=== PATIENT | female | born 1995 | race Two or more races ===

== ENCOUNTER 2025-05-04 13:08 | Outpatient (CLI) | payer OTHER | END 2025-05-04 13:16 | disposition home or self-care (01) | LOC: RAD 13:08 | PROVIDERS: ATTEND Physical Medicine & Rehabilitation | DX: M76.811 Anterior tibial syndrome, right leg (principal); M84.369 Stress fracture, unspecified tibia and fibula; X58.XXXS Exposure to other specified factors, sequela ==

== ENCOUNTER 2025-08-02 15:54 | Outpatient (CLI) | payer OTHER ==
[2025-08-02 16:21] LABS: BASO % 0.4 % (0.1-1.2); EOS # 0.15 (0.04-0.54); EOS % 1.9 % (0.7-7.0); LYMPH # 2.32 (1.18-3.74); LYMPH % 29.7 % (19.3-53.1); MEAN PLATELET VOLUME 9.60 fl (9.4-12.4); MONO # 0.57 (0.24-0.82); MONO % 7.3 % (4.7-12.5); NEUT # 4.71 (1.56-6.13); NEUT % 60.4 % (34.0-71.1); RED CELL DISTRIBUTION WIDTH 11.6 % (11.6-14.4)
[2025-08-02 17:00] LABS: COVID-19 AG NEGATIVE (NEGATIVE)
[2025-08-02 17:45] LABS: MYCOPLASMA PNEUMONIAE IGM NON REACTIVE (NO REACTIVE)
== END 2025-08-02 16:04 | disposition home or self-care (01) ==
LOC: LAB 15:54
DX: J20.0 Acute bronchitis due to Mycoplasma pneumoniae (principal); J11.1 Influenza due to unidentified influenza virus with other respiratory manifestations; B34.9 Viral infection, unspecified; Z20.822 Contact with and (suspected) exposure to COVID-19